=== PATIENT | female | born 1995 | race Caucasian/White ===

== ENCOUNTER 2017-09-13 19:33 | Emergency (ER) | payer OTHER, SELFPAY ==
[2017-09-13 19:34] VITALS: BP 135/81; PULSE 91; RESP 15; TEMP 36.9; BMI 33.7
--- NOTE | 2017-09-13 19:48 | RAD_ITS ---
STUDY: X-RAY - RIGHT SHOULDER REASON FOR EXAM: Female, 21 years old. Pain TECHNIQUE: 4 view(s) of the shoulder. COMPARISON: None. FINDINGS: Normal glenohumeral articulation. Normal acromioclavicular joint. Normal acromion. Normal humeral head and visualized proximal humerus. The soft tissue structures are unremarkable. Normal visualized pulmonary apex. RAD/Shoulder min 2 Views IMPRESSION: Normal x-ray examination of the shoulder. Electronically Signed: Pancho Teixeira MD at 20:47 EDT , Service support ,
--- NOTE | 2017-09-13 19:48 | ED.RN ---
Addendum entered by Benedicto Markham 09/13/17 19:50: Staci CLAIMS Original Note: CALLED [facility], SPOKE TO EMERY IN THE E.D. SHE STATED THAT [facility] [place] DOES NOT REQUIRE DRUG TESTING FOR [facility]
--- NOTE | 2017-09-13 19:50 | ED.DCSUM_ITS ---
- ER Visit Summary Date of Service: 09/13/17 Chief Complaint: Right shoulder pain History of Present Illness: The patient is a 21 F presenting with right shoulder pain. 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 She said she was making a bed and when she flipped the sheet over she felt a pop in her right shoulder. She has had persistent pain in her right shoulder since. She tried Advil at home with minimal relief. No other injuries. She is right- handed. Physical Examination: Vitals are stable. Patient is afebrile. Alert no acute distress. HEENT exam is unremarkable. Neck is nontender Lungs are clear and equal bilaterally. Heart is regular rate and rhythm. Extremities right anterior shoulder tenderness, painful active full range of motion, neurovascularly intact distally. Skin is warm and dry. No focal neurologic deficit. Remainder of exam is unremarkable. Emergency Department Course and Treatment: Ice pack was applied. She declined pain medication. X-ray of the right shoulder was obtained and shows no acute process. Patient is advised to ice and rest. Advised to follow-up with corporate care. Advised return ED if worsening complaints. Disposition: Discharge home Impression: Right shoulder strain This note was generated with [employer] dictation software. It may contain incorrect words, spelling, and punctuation that were not noted in review of the chart prior to signing ED Disposition - Plan for ED Patient: Disposition: Home or Assisted Living Chief Complaint: Upper Extremity Injury Instructions: ED Sprain Shoulder Referrals: [facility] [GROUP OF PHYSICIANS] - Care Physician,No Primary [Primary Care Provider] -
--- NOTE | 2017-09-13 19:50 | ED.RN ---
ATTEMPTED TO CONTACT [employer] ADMINISTR[employer] TO DETERMINE DRUG TESTING AND FOLLOW UP CARE STATUS. MESSAGE LEFT AT THIS TIME [phone]
--- NOTE | 2017-09-13 19:55 | ED.RN ---
SPOKE WITH ALEXI LITERACY COACH FOR [facility], PATIENT DOES NOT REQUIRE DRUG TESTING AND SHE IS UNSURE WHO THEY FOLLOW UP WITH CARE. SHE WILL LOOK INTO IT. PRIMARY DOCTOR MADE AWARE. CALL BACK NUMBER [phone]
--- NOTE | 2017-09-13 21:00 | ED.DEP ---
ED Disposition - Plan for ED Patient: Chief Complaint: Upper Extremity Injury Instructions: ED Sprain Shoulder Referrals: Care Physician,No Primary [[facility] Care Provider[facility] [GROUP OF PHYSICIANS] -
[2017-09-13 21:09] VITALS: RESP 16
== END 2017-09-13 21:09 | disposition home or self-care (01) ==
PROVIDERS: Emergency Provider Emergency Medicine
DX: S46.811A Strain of other muscles, fascia and tendons at shoulder and upper arm level, right arm, initial encounter (principal); X50.9XXA Other and unspecified overexertion or strenuous movements or postures, initial encounter; Y93.E9 Activity, other interior property and clothing maintenance; Y92.89 Other specified places as the place of occurrence of the external cause; Y99.0 Civilian activity done for income or pay
CPT/HCPCS: 73030; 99283